=== PATIENT | male | born 1970 | race Caucasian/White ===

== ENCOUNTER 2017-08-04 14:38 | Emergency (ER) | payer BC, OTHER ==
[2017-08-04] MEDS ORDERED: Acetaminophen 500 MG TAB ONE (15:04)
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
== END 2017-08-04 16:06 | disposition home or self-care (01) ==
LOC: SCSER 14:38
DX: S16.1XXA Strain of muscle, fascia and tendon at neck level, initial encounter (principal); I10 Essential (primary) hypertension; F17.210 Nicotine dependence, cigarettes, uncomplicated; F41.9 Anxiety disorder, unspecified; Z79.899 Other long term (current) drug therapy; V43.92XA Unspecified car occupant injured in collision with other type car in traffic accident, initial encounter
CPT/HCPCS: 72040

== ENCOUNTER 2017-09-12 13:26 | Outpatient (CLI) | payer BC ==
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
[2017-09-12] MEDS ORDERED: Gadobenate Dimeglumine 529 MG/1 ML (20ML VIAL) ONE (16:33)
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
== END 2017-09-12 13:27 | disposition home or self-care (01) ==
LOC: TBSIIMAG 13:26
PROVIDERS: ATTEND Physician Assistant Surgical
DX: M47.22 Other spondylosis with radiculopathy, cervical region (principal); J39.2 Other diseases of pharynx; Z98.1 Arthrodesis status
CPT/HCPCS: 72050; 72125; 72156; A9579

== ENCOUNTER 2018-01-18 13:49 | Outpatient (CLI) | payer BC ==
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
== END 2018-01-18 13:50 | disposition home or self-care (01) ==
LOC: TBSIIMAG 13:49
PROVIDERS: ATTEND Surgery
DX: T84.498A Other mechanical complication of other internal orthopedic devices, implants and grafts, initial encounter (principal); Z98.1 Arthrodesis status
CPT/HCPCS: 72040